=== PATIENT | female | born 1985 | race Caucasian/White ===

== ENCOUNTER 2019-11-09 11:41 | Inpatient (IN) ==
[2019-11-09] MEDS ORDERED: Lactated Ringers 1000 ml BAG 1,000 ML IV ONE (12:14)
[2019-11-09 12:53] LABS: Urine Benzodiazepine Screen None Detected (None Detect); Urine Opiates Screen None Detected (None Detect)
[2019-11-09] MEDS ORDERED: Lactated Ringers 1000 ml BAG 1,000 ML IV SCH ×2 (13:00→15:00)
[2019-11-09] MEDS ORDERED: Witch Hazel PAD JAR TOPICAL PRN (14:35)
[2019-11-09] MEDS ORDERED: Oxytocin 10 UNITS/ML 1 ML VIAL IM ONE (14:35)
[2019-11-09] MEDS ORDERED: Glycerin ADULT 2.4 gm SUPP PR PRN (14:35)
[2019-11-09] MEDS ORDERED: Dibucaine 1% OINT 28.35 GM TUBE PR PRN (14:35)
[2019-11-09] MEDS ORDERED: Lidocaine 1% VIAL 10 MG/ML VIAL ONE (17:22)
[2019-11-10 08:03] LABS: ABS Basophils 0.1 10^3/ul (0-0.2); ABS Eosinophils 0.1 10^3/ul (0-0.6); ABS Lymphocytes 2.1 10^3/ul (1.0-4.8); Eosinophil % 0.4 %; Hematocrit 32 % (35-47); Hemoglobin 11.3 g/dL (12.0-16.0); Lymphocyte % 13.8 %; Mean Corpuscular HGB Conc 35 g/dL (31-36); Mean Corpuscular Hemoglobin 33 pg (27-31); Mean Corpuscular Volume 94 fL (80-97); Mean Platelet Volume 8.5 fL (7.4-10.4); Platelet Count 174 10^3/uL (150-450); Red Blood Count 3.41 10^6 /uL (3.70-4.87); Red Cell Distribution Width 13 % (10-15)
[2019-11-10 11:35] VITALS: BP 99/55
== END 2019-11-10 16:06 | disposition home or self-care (01) | DRG 807 ==
LOC: MCHOBOUT 11:41 → MCHOB 12:01
PROVIDERS: ADMIT Midwife; ATTEND Midwife